=== PATIENT | female | born 1990 | race African-American/Black ===

== ENCOUNTER 2018-10-26 12:23 | Emergency (ER) | payer MEDICAID ==
[~2018-10-26] VITALS: Ht 167.6 cm; Wt 68.0 kg
[2018-10-26 12:23] VITALS: BP_SYST 122
--- NOTE | 2018-10-26 13:56 | NUR ---
Patient to ER bed 6 to gown for evaluation. Side rails up. Report given to Claudio DE LA O.
--- NOTE | 2018-10-26 14:00 | NUR ---
Patient ambulatory to ED a/o x 4 with c/o SOB. Described as intermitent episodes lasting approximately 1 to 5 minutes in nature. Unprovoked and do not worsen with excertion. -CP -N/V -Cough.
--- NOTE | 2018-10-26 14:12 | NUR ---
ED PA Hand bedside evaluating patient.
[2018-10-26 15:14] VITALS: BP_SYST 122
--- NOTE | 2018-10-26 15:14 | NUR ---
Patient given written and verbal discharge instructions and verbalizes understanding. ER MD discussed with patient the results and treatment provided. Patient in stable condition. ID arm band removed. No Rx given. Patient educated on pain management and to follow up with PMD. Pain Scale 0/10. Opportunity for questions provided and answered. Medication side effect fact sheet provided.
== END 2018-10-26 15:14 | disposition home or self-care (01) ==
LOC: SED 12:23
DX: R06.02 Shortness of breath (principal); F12.90 Cannabis use, unspecified, uncomplicated
CPT/HCPCS: 71045; 81025; 93005; 99283

== ENCOUNTER 2020-05-21 09:53 | Emergency (ER) | payer MEDICAID ==
[~2020-05-21] VITALS: Ht 167.6 cm; Wt 77.1 kg
[2020-05-21 10:52] VITALS: BP_SYST 127
[2020-05-21 13:49] VITALS: BP_SYST 127
== END 2020-05-21 13:49 | disposition home or self-care (01) ==
LOC: SED 09:53
DX: H10.32 Unspecified acute conjunctivitis, left eye (principal)
CPT/HCPCS: 99283

== ENCOUNTER 2020-06-28 00:26 | Emergency (ER) | payer MEDICAID, SELFPAY ==
[~2020-06-28] VITALS: Ht 170.2 cm; Wt 77.1 kg
[2020-06-28 00:35] VITALS: BP_SYST 136
--- NOTE | 2020-06-28 00:35 | NUR ---
PT TO BED 4 FOR EVALUATION
--- NOTE | 2020-06-28 00:35 | NUR ---
Received patient to ER w/ c/o fever, sorethroat and pain upon swallowing ongoing since Friday. patient states temp as high as 104 at home. Cooling measures in effect. Introduced self to patient, positioned for comfort and safety w/ bed to low position sr up. continue to monitor.
--- NOTE | 2020-06-28 01:00 | NUR ---
blood drawn, obtained swabs of nose and throat (for covid, strep throat, and influenza). All specimens sent to lab. positioned for comfort, continue to monitor.
[2020-06-28] MEDS ORDERED: cefTRIAXone 1 GM in D5W 50 ML IV ONE (01:15)
[2020-06-28] MEDS ORDERED: cefTRIAXone 1 GM IVPB PREMIX 50 ML IV ONE (01:25)
[2020-06-28] MEDS ORDERED: ACETAMINOPHEN 500 MG TABLET ONE (01:39)
[2020-06-28] MEDS ORDERED: ACETAMINOPHEN 500 MG TABLET PO ONE (01:45)
[2020-06-28 01:48] LABS: STREPTOCOCCUS A SCREEN (RAPID) POSITIVE (NEGATIVE)
[2020-06-28 01:56] LABS: INFLUENZA A&B ANTIGEN SCREEN NEGATIVE FOR A & B (NEGATIVE)
[2020-06-28 02:23] LABS: BASOPHILS # (AUTO) 0.1 K/uL (0.0-0.2); BASOPHILS % (AUTO) 0.6 % (0.0-2.0); EOSINOPHILS % (AUTO) 0.2 % (0.0-4.0); HEMATOCRIT 38.6 % (36-48); HEMOGLOBIN 12.8 g/dL (12.0-16.0); LYMPHOCYTES # (AUTO) 1.5 K/uL (1.0-5.5); LYMPHOCYTES % (AUTO) 10.2 % (20.5-51.5); MEAN CORPUSCULAR HEMOGLOBIN 31 pg (27-31); MEAN CORPUSCULAR HGB CONC 33 % (32-36); MEAN CORPUSCULAR VOLUME 93 fL (79.0-98.0); MONOCYTES # (AUTO) 1.3 K/uL (0.0-1.0); MONOCYTES % (AUTO) 8.9 % (1.7-9.3); NEUTROPHILS # (AUTO) 12.1 K/uL (1.8-7.7); NEUTROPHILS % (AUTO) 80.1 % (40.0-70.0); PLATELET COUNT (AUTO) 318 K/uL (130-430); RED BLOOD CELL COUNT(AUTO) 4.13 MIL/uL (4.2-6.2); RED CELL DISTRIBUTION WIDTH 14.1 % (9.0-15.0); WHITE BLOOD COUNT (AUTO) 15.1 K/uL (4.8-10.8)
[2020-06-28 02:31] LABS: CALCIUM 9.1 mg/dL (8.4-11.0); CREATININE 1.13 mg/dL (0.55-1.30)
[2020-06-28 02:49] LABS: ALBUMIN 3.3 g/dL (3.4-4.8); TOTAL BILIRUBIN 0.2 mg/dL (0.0-1.0)
[2020-06-28 03:00] VITALS: BP_SYST 114
--- NOTE | 2020-06-28 03:00 | NUR ---
Patient given written and verbal discharge instructions and verbalizes understanding. ER MD discussed with patient the results and treatment provided. Patient in stable condition. ID arm band removed. IV catheter removed intact and dressing applied, no active bleeding. Rx of given. Patient educated on pain management and to follow up with PMD. Pain Scale . Opportunity for questions provided and answered. Medication side effect fact sheet provided.
== END 2020-06-28 03:00 | disposition home or self-care (01) ==
LOC: SED 00:26
DX: J02.0 Streptococcal pharyngitis (principal); Z20.822 Contact with and (suspected) exposure to COVID-19
CPT/HCPCS: 36415; 71045; 80053; 85025; 86403; 86710; 87040; 87426; 96365; 99284; J0696; J7030

== ENCOUNTER 2022-11-11 13:47 | Emergency (ER) | payer MEDICAID ==
[~2022-11-11] VITALS: Ht 170.2 cm; Wt 81.6 kg
[2022-11-11 13:50] VITALS: BP_SYST 99
--- NOTE | 2022-11-11 15:26 | NUR ---
Patient to [facility] for evaluation.
--- NOTE | 2022-11-11 16:17 | NUR ---
ER at bedside examining patient.
[2022-11-11] MEDS ORDERED: DIPHTH,PERTUSS(ACELL),TET VAC 0.5 ML VIAL (Tdap) I.M. ONE (16:30)
[2022-11-11] MEDS ORDERED: HYDROcodone/ACETAMIN 5-325 MG TAB (NORCO/ VICODIN) PO ONE (16:30)
[2022-11-11] MEDS ORDERED: IBUP-1969 PO (17:02)
[2022-11-11] MEDS ORDERED: OXYC-128 PO (17:02)
--- NOTE | 2022-11-11 17:08 | NUR ---
POSTERIOR SHORT LEG SPLINT APPLIED TO RIGHT ANKLE. PMS PRESENT AFTER SPLINT APPLICATION. WOUND ON NECK WAS CLEANED WITH BETADINE SOLUTION AND COVERED WITH BANDAGE.
--- NOTE | 2022-11-11 17:12 | NUR ---
MEDICATED PER MD ORDER. PATIENT TOLERATED WELL.
[2022-11-11 17:17] VITALS: BP_SYST 112
--- NOTE | 2022-11-11 17:17 | NUR ---
Patient given written and verbal discharge instructions and verbalizes understanding. ER MD discussed with patient the results and treatment provided. Patient in stable condition. ID arm band removed. Rx of PERCOCET AND IBUPROFEN given. Patient educated on pain management and to follow up with PMD. Pain Scale 0/10 Opportunity for questions provided and answered. Medication side effect fact sheet provided.
[2022-11-13] MEDS ORDERED: ACET1TAB93 PO (12:02)
== END 2022-11-11 17:17 | disposition home or self-care (01) ==
LOC: SED 13:47
DX: S80.211A Abrasion, right knee, initial encounter (principal); Z79.899 Other long term (current) drug therapy; W22.8XXA Striking against or struck by other objects, initial encounter; Y93.89 Activity, other specified; Y92.89 Other specified places as the place of occurrence of the external cause; Y99.8 Other external cause status
CPT/HCPCS: 73590-TC; 90715; 99284

== ENCOUNTER 2024-03-21 12:29 | Emergency (ER) | payer SELFPAY ==
[~2024-03-21] VITALS: Ht 167.6 cm; Wt 77.1 kg
[~2024-03-21 12:29] MED LIST: IBUP-1969 PO; OXYC-128 PO
[2024-03-21 12:50] VITALS: BP_SYST 132; PULSE 106; RESP 18; TEMP 97.3; O2SAT 98
[2024-03-21] MEDS: FAMOTIDINE 20 MG TABLET PO ONE (13:19)
[2024-03-21] MEDS: predniSONE 20 MG TABLET PO ONE (13:19)
[2024-03-21] MEDS: EPINEPHRINE HCL/PF 1 MG/ML AMP IM ONE (13:20)
[2024-03-21] MEDS ORDERED: EPIN0.3P3 IM (13:50)
[2024-03-21] MEDS ORDERED: DIPH25CA83 PO (13:50)
[2024-03-21] MEDS ORDERED: PRED20TA PO (13:50)
[2024-03-21 13:55] VITALS: BP_SYST 132; PULSE 86; RESP 16; TEMP 97.3; O2SAT 98
== END 2024-03-21 13:55 | disposition home or self-care (01) ==
LOC: SED 12:29
DX: L50.9 Urticaria, unspecified (principal); Z79.899 Other long term (current) drug therapy
CPT/HCPCS: 99283; 96372; J7512; J0171